=== PATIENT | male | born 1950 | race Caucasian/White ===

== ENCOUNTER → 2016-11-23 | Outpatient (CLI) | payer MEDICARE, OTHER ==
[2016-11-23 09:56] LABS: HEMOGLOBIN 13.9 gm/dl (14.0-17.5); RED BLOOD COUNT 4.46 M/UL (4.20-5.50); WHITE BLOOD COUNT 4.2 K/UL (4.5-11.0)
[2016-11-23 10:21] LABS: BUN/CREATININE RATIO 21 (0-10)
== END ==
LOC: LAB 08:25
PROVIDERS: Nurse Practitioner Family
DX: Z00.00 Encounter for general adult medical examination without abnormal findings (principal); R73.09 Other abnormal glucose; E78.5 Hyperlipidemia, unspecified; I10 Essential (primary) hypertension; E53.8 Deficiency of other specified B group vitamins; M10.9 Gout, unspecified; M54.5 Low back pain; J30.9 Allergic rhinitis, unspecified; M25.50 Pain in unspecified joint
CPT/HCPCS: 36415; 80053; 80061; 82043; 82570; 82607; 83036; 84439; 84443; 84550; 85025

== ENCOUNTER → 2017-03-28 | Outpatient (CLI) | payer MEDICARE, OTHER ==
[2017-03-28 09:31] LABS: HEMOGLOBIN 14.2 gm/dl (14.0-17.5); RED BLOOD COUNT 4.51 M/UL (4.20-5.50); WHITE BLOOD COUNT 4.3 K/UL (4.5-11.0)
[2017-03-28 10:12] LABS: BUN/CREATININE RATIO 19 (0-10)
== END ==
LOC: LAB 08:41
PROVIDERS: Nurse Practitioner Family
DX: E11.9 Type 2 diabetes mellitus without complications (principal); R93.5 Abnormal findings on diagnostic imaging of other abdominal regions, including retroperitoneum; M25.50 Pain in unspecified joint; E78.5 Hyperlipidemia, unspecified; I10 Essential (primary) hypertension; E53.8 Deficiency of other specified B group vitamins; E55.9 Vitamin D deficiency, unspecified
CPT/HCPCS: 36415; 80053; 80061; 82043; 82570; 82607; 82728; 83036; 83540; 83550; 84439; 84443; 85025

== ENCOUNTER → 2017-03-29 | Outpatient (CLI) | payer MEDICARE, OTHER | LOC: LAB 10:28 | DX: M25.561 Pain in right knee (principal); M25.562 Pain in left knee; M79.606 Pain in leg, unspecified; M17.11 Unilateral primary osteoarthritis, right knee | CPT/HCPCS: 36415; 73562; 84550; 86039; 86060; 86431 ==

== ENCOUNTER → 2020-08-11 | Outpatient (CLI) | payer OTHER ==
[~2020-08-11] MED LIST: AMLODIPINE BESY10 MG PO; GABAPENTIN300 MG PO; HYDROXYZINE HCL10 MG PO; LEVOCETIRIZINE D5 MG PO; MONTELUKAST SOD10 MG PO; OMEGA 3-6-9 11200 MG PO; OMEPRAZOLE20 MG PO; TYLENOL 500 MG500 MG PO; VITAMIN B-1250 MCG PO; VITAMIN C1000 MG PO; VITAMIN D325 MCG PO; WAL-FEX D 24 H1 EACH PO; ZOCOR 40 MG TAB40 MG PO; ZYLOPRIM 300 M300 MG PO
[2020-08-11 09:24] LABS: RED BLOOD COUNT 4.81 M/UL (4.20-5.50); WHITE BLOOD COUNT 5.2 K/UL (4.5-11.0)
[2020-08-11 09:46] LABS: BUN/CREATININE RATIO 18 (0-10)
[2020-08-12 09:15] LABS: CREATININE, URINE 96.7 mg/dL (Not Estab.)
== END ==
LOC: LAB 08:30
PROVIDERS: Nurse Practitioner Family
DX: E11.9 Type 2 diabetes mellitus without complications (principal); E78.5 Hyperlipidemia, unspecified; R79.89 Other specified abnormal findings of blood chemistry; E03.8 Other specified hypothyroidism; R20.9 Unspecified disturbances of skin sensation; E55.9 Vitamin D deficiency, unspecified; J01.90 Acute sinusitis, unspecified; Z87.891 Personal history of nicotine dependence
CPT/HCPCS: 36415; 80053; 80061; 82043; 82570; 82607; 83036; 84439; 84443; 85025

== ENCOUNTER → 2020-09-26 | Outpatient (CLI) | payer OTHER | LOC: KOH-I 09-09 11:00 | DX: Z12.2 Encounter for screening for malignant neoplasm of respiratory organs (principal); Z87.891 Personal history of nicotine dependence | CPT/HCPCS: 71271 ==

== ENCOUNTER → 2020-11-03 | Outpatient (CLI) | payer OTHER | LOC: EXRD 11:33 | DX: R06.02 Shortness of breath (principal) | CPT/HCPCS: 71046 ==

== ENCOUNTER → 2021-04-04 | Outpatient (CLI) | payer OTHER | LOC: EXRD 11:06 → EDSTATUS 16:49 | DX: M25.561 Pain in right knee (principal); M17.11 Unilateral primary osteoarthritis, right knee | CPT/HCPCS: 73560 ==

== ENCOUNTER → 2021-04-18 | Outpatient (CLI) | payer OTHER | LOC: HEART 5 08:00 | DX: R07.9 Chest pain, unspecified (principal) | CPT/HCPCS: 78452; A9502; J2785 ==

== ENCOUNTER → 2021-10-16 | Outpatient (CLI) | payer MEDICARE | LOC: EXRD 09:56 | DX: M25.611 Stiffness of right shoulder, not elsewhere classified (principal); M25.511 Pain in right shoulder | CPT/HCPCS: 73030 ==

== ENCOUNTER → 2021-10-25 | Outpatient (CLI) | payer MEDICARE | LOC: KOH-I 08:09 | DX: M25.611 Stiffness of right shoulder, not elsewhere classified (principal); M75.111 Incomplete rotator cuff tear or rupture of right shoulder, not specified as traumatic; S46.111A Strain of muscle, fascia and tendon of long head of biceps, right arm, initial encounter | CPT/HCPCS: 73221 ==